=== PATIENT | male | born 1940 | race Caucasian/White ===

== ENCOUNTER 2017-03-26 21:18 | Emergency (ER) | payer MEDICARE ==
[~2017-03-26] VITALS: Ht 172.7 cm; Wt 63.5 kg
[~2017-03-26 21:18] MED LIST: LORAZEPAM1 MG PO; NKHM; SYNTHROID,LEV150 MCG PO; VICODIN ES 7501 TA1 PO
[2017-03-26] MEDS ORDERED: PEPCID20 MG PO (23:16)
[2017-03-26] MEDS ORDERED: PREDNISONE20 M1 PO (23:16)
== END 2017-03-26 23:23 | disposition home or self-care (01) ==
LOC: ED 21:18
DX: T78.40XA Allergy, unspecified, initial encounter (principal); Z79.899 Other long term (current) drug therapy; X58.XXXA Exposure to other specified factors, initial encounter